=== PATIENT | female | born 1955 | race Caucasian/White ===

== ENCOUNTER 2017-04-28 20:20 | Emergency (ER) | payer BC ==
--- NOTE | 2017-04-28 20:30 | EDM.PDOC ---
ED HPI GENERAL MEDICAL PROBLEM - General Chief Complaint: Cardiovascular Problem Stated Complaint: "heart racing" Time Seen by Provider: 04/28/17 20:24 Source of Information: Reports: Patient History Limitations: Reports: No Limitations - History of Present Illness INITIAL COMMENTS - FREE TEXT/NARRATIVE: This patient is a 62 year old female that presents to the ER. Patient reports that about 7pm this evening she began to have heart racing sensation with shortness of breath. She reports it lasted about 30 minutes then it resolved on its own. Patient reports that she has not been taking any of her medications for 2 months. I asked her why she has not been taking her medications. Her response "because I did not get them filled." She reports since taking her medciations she did not have any episodes, but now she has not taken them. Patient denies ferrell, dizziness, n, v, d, f, cp, abd pain. She reports here in the ER her heart racing and shortness of breath have resolved. Onset: Today Onset Date: 04/28/17 Onset Time: 19:00 Duration: Minutes: (30) Severity: Moderate Improves with: Reports: None Worsens with: Reports: None Associated Symptoms: Reports: Shortness of Breath. Denies: Confusion, Chest Pain, Cough, cough w sputum, Diaphoresis, Fever/Chills, Headaches, Loss of Appetite, Malaise, Nausea/Vomiting, Rash, Seizure, Syncope, Weakness - Related Data Allergies Allergy/AdvReac Type Severity Reaction Status Date / Time Sulfa (Sulfonamide Allergy Cannot Verified 04/28/17 20:40 Antibiotics) Remember Home Meds: Home Meds Aspirin [Colt Chewable Aspirin] 81 mg PO BID 06/18/15 [History] Lisinopril/Hydrochlorothiazide [Lisinopril-Hctz 20-25 mg Tab] 1 tab PO DAILY [History] Metoprolol Succinate 50 mg PO DAILY 06/18/15 [History] Simvastatin 10 mg PO BEDTIME 06/18/15 [History] Potassium Chloride 10 meq PO DAILY #30 cap.er 06/20/15 [Rx] Rivaroxaban [Xarelto] 20 mg PO DAILY #30 tablet 06/20/15 [Rx] Topiramate [Topiramate] 100 mg PO BID 04/28/17 [History] Past Medical History Other Dermatologic History: excema - Past Surgical History Other GI Surgeries/Procedures: gastric bypass Social & Family History - Tobacco Use Smoking Status *Q: Former Smoker Years of Tobacco use: 5 Month Tobacco Last Used: 38 years ago Second Hand Smoke Exposure: No - Recreational Drug Use Recreational Drug Use: No ED ROS GENERAL - Review of Systems Review Of Systems: See Below Constitutional: Reports: No Symptoms HEENT: Reports: No Symptoms Respiratory: Reports: Shortness of Breath Cardiovascular: Reports: Palpitations Endocrine: Reports: No Symptoms GI/Abdominal: Reports: No Symptoms : Reports: No Symptoms Musculoskeletal: Reports: No Symptoms Skin: Reports: No Symptoms Neurological: Reports: No Symptoms Psychiatric: Reports: No Symptoms Hematologic/Lymphatic: Reports: No Symptoms Immunologic: Reports: No Symptoms ED EXAM, GENERAL - Physical Exam Exam: See Below Exam Limited By: No Limitations General Appearance: Alert, WD/WN, No Apparent Distress Eye Exam: Bilateral Eye: Normal Inspection, PERRL Ears: Normal External Exam, Normal Canal, Hearing Grossly Normal, Normal TMs Ear Exam: Bilateral Ear: Auricle Normal, Canal Normal, TM normal Nose: Normal Inspection, Normal Mucosa, No Blood Throat/Mouth: Normal Inspection, Normal Lips, Normal Teeth, Normal Gums, Normal Oropharynx, Normal Voice, No Airway Compromise Head: Atraumatic, Normocephalic Neck: Normal Inspection, Supple, Non-Tender, Full Range of Motion Respiratory/Chest: No Respiratory Distress, Lungs Clear, Normal Breath Sounds, No Accessory Muscle Use Cardiovascular: Normal Peripheral Pulses, Regular Rate, Rhythm (on exam. ), No Edema, No Gallop, No JVD, No Murmur, No Rub Peripheral Pulses: 2+: Radial (L), Radial (R), Posterior Tibial (L), Posterior Tibial (R) GI/Abdominal: Soft, Non-Tender Back Exam: Normal Inspection, Full Range of Motion Extremities: Normal Inspection, Normal Range of Motion, Non-Tender, No Pedal Edema, Normal Capillary Refill Neurological: Alert, Oriented, Normal Cognition, Normal Gait, No Motor/Sensory Deficits Psychiatric: Anxious, Tearful Skin Exam: Warm, Dry, Intact, Normal Color, No Rash Lymphatic: No Adenopathy EKG INTERPRETATION EKG Date: 04/28/17 Time: 20:19 Rhythm: NSR Rate (Beats/Min): 81 [place]: Normal P-Wave: Present QRS: Normal ST-T: Normal QT: Normal Course - Vital Signs Last Recorded V/S: Last Vital Signs Temp 96.4 F 04/28/17 22:34 Pulse 62 04/28/17 22:34 Resp 16 04/28/17 22:34 BP 148/90 H 04/28/17 22:34 Pulse Ox 96 04/28/17 22:34 - Orders/Labs/Meds Orders: Active Orders 24 hr Category Date Time Status EKG Documentation Completion [RC] STAT Care 04/28/17 20:24 Active Chest 2V [CR] Stat Exams 04/28/17 20:25 Taken Labs: Laboratory Tests 04/28/17 04/28/17 04/28/17 Range/Units 20:30 20:30 22:20 WBC 8.5 (5.0-10.0) 10^3/uL RBC 4.15 (4.00-5.50) 10^6/uL Hgb 11.0 L (12.0-16.0) g/dL Hct 35.0 L (37.0-47.0) % MCV 84.3 (82.0-94.0) fL MCH 26.5 L (27.0-32.0) pg MCHC 31.4 L (33.0-38.0) g/dL RDW Coeff of Yandel 15.0 (11.0-15.0) % Plt Count 239 (150-400) 10^3/uL Neut % (Auto) 76.2 (35-85) % Lymph % (Auto) 16.1 (10-55) % [place] % (Auto) 5.7 (0-16) % Eos % (Auto) 1.8 (0-5) % Baso % (Auto) 0.2 (0-3) % Neut # (Auto) 6.47 (1.80-7.00) 10^3/uL Lymph # (Auto) 1.37 (1.00-4.80) 10^3/uL [place] # (Auto) 0.48 (0.00-0.80) 10^3/uL Eos # (Auto) 0.15 (0.00-0.45) 10^3/uL Baso # (Auto) 0.02 10^3/uL Sodium 142 (136-145) mEq/L Potassium 3.8 (3.5-5.0) mEq/L Chloride 104 (98-106) mEq/L Carbon Dioxide 25 (21-32) mmol/L BUN 12 (7-18) mg/dL Creatinine 0.7 (0.6-1.0) mg/dL Est Cr Clr Drug Dosing 71.03 mL/min Estimated GFR (MDRD) > 60 (>=60) mL/min Glucose 136 H (75-99) mg/dL Calcium 9.3 (8.4-10.1) mg/dL Total Bilirubin 0.3 (0.0-1.0) mg/dL AST 45 H (15-37) U/L ALT 31 (12-78) U/L Alkaline Phosphatase 132 H (46-116) U/L Troponin I 0.023 0.054 (0.00-0.06) ng/mL Total Protein 7.8 (6.4-8.2) g/dL Albumin 3.9 (3.4-5.0) g/dL Meds: Medications Discontinued Medications Generic Name Dose Route Start Last Admin Trade Name Freq PRN Reason Stop Dose Admin Metoprolol Tartrate 50 mg 04/28/17 21:09 04/28/17 21:28 Lopressor PO 04/28/17 21:10 50 mg ONETIME ONE Administration - Radiology Interpretation Free Text/Narrative:: CXR: No infiltrates, no cardiac enlargement, no pulmonary edema. - Re-Assessments/Exams Free Text/Narrative Re-Assessment/Exam: 04/28/17 21:07 I called and spoke to Waistline Joiner Overlock Dr. Graff at [facility]. He reports that I can give her the Metoprlol in the ER PO tonight and have the patient fill her medications tomorrow and followup with PCP. Will repeat troponin, if still in negative range, will discharge. 04/28/17 22:52 Troponin still negative, will discharge per manager combination. 04/28/17 22:53 Patient has not had palpitations or a-fib while here in ER. Will discharge. Departure - Departure Time of Disposition: 22:53 Disposition: Home, Self-Care 01 Condition: Good Clinical Impression: Palpitations Atrial fibrillation Qualifiers: Atrial fibrillation type: unspecified Qualified Code(s): I48.91 - Unspecified atrial fibrillation Instructions: Atrial Fibrillation, [id number] Referrals: Troy Chamberlain MD [Primary Care Provider] - Forms: ED Department Discharge Additional Instructions: Followup with your primary care provider Return to the ER for worsening of condition or any emergent concerns GO TOMORROW MORNING TO PHARMACY AND REFILL ALL OF YOUR MEDICATIONS I have filled for you: Potassium Choloride Metroprolol Xarelto Lisinopril/HCTZ PLEASE ASK PHARMACIST TOMORROW TO ASK YOUR PRIMARY CARE PROVIDER FOR REFILL ON ALL YOUR OTHER MEDICATIONS. - My Orders Last 24 Hours: My Active Orders 04/28/17 20:24 EKG Documentation Completion [RC] STAT 04/28/17 20:25 Chest 2V [CR] Stat - Assessment/Plan Last 24 Hours: My Active Orders 04/28/17 20:24 EKG Documentation Completion [RC] STAT 04/28/17 20:25 Chest 2V [CR] Stat Plan: PLEASE SEE RN NOTE FOR PFSH.
[2017-04-28 20:49] LABS: CHLORIDE,CL 104 mEq/L (98-106); SODIUM,NA 142 mEq/L (136-145)
[2017-04-28] MEDS ORDERED: Metoprolol Tartrate 50 MG Tab PO ONE (21:09)
[2017-04-28 22:38] VITALS: BP 148/90
== END 2017-04-28 23:20 | disposition home or self-care (01) ==
LOC: CC.ED 20:20
DX: I48.91 Unspecified atrial fibrillation (principal); Z88.2 Allergy status to sulfonamides; Z79.82 Long term (current) use of aspirin; Z79.899 Other long term (current) drug therapy; Z98.84 Bariatric surgery status; Z87.891 Personal history of nicotine dependence
CPT/HCPCS: 36415; 71020; 80053; 84484; 85025; 93005; 99285; A9270

== ENCOUNTER 2019-06-19 14:19 | Emergency (ER) | payer OTHER, MEDICARE ==
[2019-06-19 14:54] VITALS: BP 119/62; PULSE 81
--- NOTE | 2019-06-19 14:56 | EDM.PDOC ---
ED HPI GENERAL MEDICAL PROBLEM - General Stated Complaint: FALL Time Seen by Provider: 06/19/19 14:35 Source of Information: Reports: Patient History Limitations: Reports: No Limitations - History of Present Illness INITIAL COMMENTS - FREE TEXT/NARRATIVE: This patient is a 64 year old female that reports she was working at [employer] when she slipped on the floor and fell on her right side. Patient reports pain to the right elbow. She reports very mild right hip/thigh pain. Patient denies blood thinners, head injury, neck pain, neck stiffness, headache, vision changes , n, v, or any other pain complaints. Onset: Today Onset Date: 06/19/19 Onset Time: 13:30 Location: Reports: Upper Extremity, Right, Lower Extremity, Right Front/Back Body Image: 1 - pain, tenderness. 2 - pain, mildly tender. Quality: Reports: Ache Severity: Mild Improves with: Reports: Immobilization Worsens with: Reports: Movement Associated Symptoms: Reports: No Other Symptoms. Denies: Confusion, Chest Pain , Cough, cough w sputum, Diaphoresis, Fever/Chills, Headaches, Loss of Appetite , Malaise, Nausea/Vomiting, Rash, Seizure, Shortness of Breath, Syncope, Weakness Right Elbow Pain Score (Numeric/FACES): 7 - Related Data Allergies Allergy/AdvReac Type Severity Reaction Status Date / Time Sulfa (Sulfonamide Allergy Cannot Verified 06/19/19 14:42 Antibiotics) Remember Home Meds: Home Meds Aspirin [Colt Chewable Aspirin] 81 mg PO BID 06/18/15 [History] Metoprolol Succinate 50 mg PO DAILY 06/18/15 [History] Simvastatin 10 mg PO BEDTIME 06/18/15 [History] Potassium Chloride 10 meq PO DAILY #30 cap.er 06/20/15 [Rx] Past Medical History Cardiovascular History: Reports: High Cholesterol, Hypertension Other Dermatologic History: excema - Past Surgical History Other GI Surgeries/Procedures: gastric bypass Social & Family History - Family History Family Medical History: Noncontributory - Caffeine Use Caffeine Use: Reports: None Review of Systems - Review of Systems Review Of Systems: See Below Constitutional: Reports: No Symptoms Eyes: Reports: No Symptoms Ears: Reports: No Symptoms Nose: Reports: No Symptoms Mouth/Throat: Reports: No Symptoms Respiratory: Reports: No Symptoms Cardiovascular: Reports: No Symptoms GI/Abdominal: Reports: No Symptoms Genitourinary: Reports: No Symptoms Musculoskeletal: Reports: Leg Pain (right upper thigh lateral pain. ), Joint Pain (Right elbow pain). Denies: Neck Pain, Shoulder Pain, Back Pain, Hand Pain , Joint Swelling Skin: Reports: No Symptoms Neurological: Reports: No Symptoms Psychiatric: Reports: No Symptoms ED EXAM, GENERAL - Physical Exam Exam: See Below Exam Limited By: No Limitations General Appearance: Alert, WD/WN, No Apparent Distress Eye Exam: Bilateral Eye: EOMI, Normal Inspection, PERRL Ears: Normal External Exam, Normal Canal, Hearing Grossly Normal, Normal TMs Ear Exam: Bilateral Ear: Auricle Normal, Canal Normal, TM normal Nose: Normal Inspection, Normal Mucosa, No Blood Throat/Mouth: Normal Inspection, Normal Lips, Normal Teeth, Normal Gums, Normal Oropharynx, Normal Voice, No Airway Compromise Head: Atraumatic, Normocephalic Neck: Normal Inspection, Supple, Non-Tender, Full Range of Motion Respiratory/Chest: No Respiratory Distress, Lungs Clear Cardiovascular: Normal Peripheral Pulses, Regular Rate, Rhythm, No Edema, No Gallop, No JVD, No Murmur, No Rub Peripheral Pulses: 2+: Radial (L), Radial (R), Posterior Tibial (L), Posterior Tibial (R) GI/Abdominal: Soft, Non-Tender, No Organomegaly, No Distention, No Mass, Pelvis Stable Back Exam: Normal Inspection, Full Range of Motion. No: CVA Tenderness (L), CVA Tenderness (R), Decreased Range of Motion, Muscle Spasm, Paraspinal Tenderness, Vertebral Tenderness Extremities: Normal Inspection, Normal Range of Motion, No Pedal Edema, Normal Capillary Refill, Leg Pain (Righ lateral thigh/posterior buttock. No miguel ángel tenderness. ROM of hip/pelvis full intact. No shortening. Normal ambualation without difficulty, sensory/motor function intact. Neurovascular intact. Pulses +2.), Other (Pain, tenderness to the Right elbow. No swelling, ecchymosis. Pain with supination and pronation, but ROM fully intact. Neurovascular intact, pulses +2, cap refill < 2 sec. Sensory/motor function intact. ). No: Limited Range of Motion Neurological: Alert, Oriented, Normal Cognition, Normal Gait, No Motor/Sensory Deficits Psychiatric: Normal Affect, Normal Mood Skin Exam: Warm, Dry, Intact, Normal Color, No Rash Lymphatic: No Adenopathy Course - Vital Signs Last Recorded V/S: Last Vital Signs Temp 98.5 F 06/19/19 14:52 Pulse 81 06/19/19 14:52 Resp 20 06/19/19 14:52 BP 119/62 06/19/19 14:52 Pulse Ox 98 06/19/19 14:52 - Radiology Interpretation Free Text/Narrative:: Right elbow Xray: No fx. No dislocation. No effusion Departure - Departure Time of Disposition: 15:15 Disposition: Home, Self-Care 01 Condition: Good Clinical Impression: Fall Qualifiers: Encounter type: initial encounter Qualified Code(s): W19.XXXA - Unspecified fall, initial encounter Contusion of right elbow Qualifiers: Encounter type: initial encounter Qualified Code(s): S50.01XA - Contusion of right elbow, initial encounter Contusion, buttock Qualifiers: Encounter type: initial encounter Qualified Code(s): S30.0XXA - Contusion of lower back and pelvis, initial encounter - Discharge Information *PRESCRIPTION DRUG MONITORING PROGRAM REVIEWED*: Not Applicable *COPY OF PRESCRIPTION DRUG MONITORING REPORT IN PATIENT PAPO: Not Applicable Instructions: Contusion, Elbow Contusion, [id number] Referrals: Stephanie Gutierrez PA-C [Primary Care Provider] - Forms: ED Department Discharge Additional Instructions: Followup with your primary care provider if pain continues after 2 weeks Return to the ER for worsening of condition or any emergent concerns Rest Ice Elevate Sling as needed No use of right arm/elbow for 3 days Tylenol or Motrin for pain as needed - Assessment/Plan Plan: PLEASE SEE RN NOTE FOR PFSH.
== END 2019-06-19 15:30 | disposition home or self-care (01) ==
LOC: CC.ED 14:19
DX: S50.01XA Contusion of right elbow, initial encounter (principal); S30.0XXA Contusion of lower back and pelvis, initial encounter; E78.00 Pure hypercholesterolemia, unspecified; I10 Essential (primary) hypertension; Z88.2 Allergy status to sulfonamides; Z79.82 Long term (current) use of aspirin; Z79.899 Other long term (current) drug therapy; W01.0XXA Fall on same level from slipping, tripping and stumbling without subsequent striking against object, initial encounter
CPT/HCPCS: 73080-RT; 99284-25

== ENCOUNTER 2020-02-17 13:41 | Emergency (ER) | payer MEDICARE ==
[2020-02-17 14:10] VITALS: BP 142/85; PULSE 95
[2020-02-17 14:16] LABS: CHLORIDE,CL 101 mEq/L (98-106); SODIUM,NA 138 mEq/L (136-145)
--- NOTE | 2020-02-17 14:19 | EDM.PDOC ---
ED HPI GENERAL MEDICAL PROBLEM - General Chief Complaint: General Stated Complaint: A-FIB ATTACK Time Seen by Provider: 02/17/20 14:10 Source of Information: Reports: Patient History Limitations: Reports: No Limitations - History of Present Illness INITIAL COMMENTS - FREE TEXT/NARRATIVE: States that she was shopping today and she could feel her heart rate become irregular and race. She has history of a fib about 3 years ago and she states that it feels like that now. She did have some chest heaviness and short of breathe when it was occurring. She has noted these on and off for the last several days. On arrival in the ER she has NSR and she no longer feels that it is irregular. She doesn't feel SOB with it currently. Has not noted any edema. Has never seen pants cutter. Onset: Gradual Duration: Resolved Prior to Arrival Location: Reports: Chest Associated Symptoms: Reports: Chest Pain, Shortness of Breath - Related Data Allergies Allergy/AdvReac Type Severity Reaction Status Date / Time Sulfa (Sulfonamide Allergy Cannot Verified 02/17/20 13:58 Antibiotics) Remember Home Meds: Home Meds Aspirin [Colt Chewable Aspirin] 81 mg PO BID 06/18/15 [History] Metoprolol Succinate 50 mg PO DAILY 06/18/15 [History] Simvastatin 10 mg PO BEDTIME 06/18/15 [History] Potassium Chloride 10 meq PO DAILY #30 cap.er 06/20/15 [Rx] Lisinopril/Hydrochlorothiazide [Lisinopril-HCTZ 10-12.5 MG] 1 tab PO DAILY 02/16 [History] Past Medical History HEENT History: Reports: None Cardiovascular History: Reports: Afib, High Cholesterol, Hypertension Respiratory History: Reports: None Gastrointestinal History: Reports: None Genitourinary History: Reports: None Neurological History: Reports: None Endocrine/Metabolic History: Reports: None Other Dermatologic History: excema - Past Surgical History Other GI Surgeries/Procedures: gastric bypass Other Musculoskeletal Surgeries/Procedures:: Patient fell and has 1cm contusion to right elbow and patient c/o right hip pain. Social & Family History - Family History Family Medical History: Noncontributory - Tobacco Use Smoking Status *Q: Never Smoker - Caffeine Use Caffeine Use: Reports: None - Living Situation & Occupation Living situation: Reports: , with Spouse Occupation: Employed ED ROS GENERAL - Review of Systems Review Of Systems: See Below Constitutional: Denies: Fever, Chills HEENT: Reports: No Symptoms Respiratory: Reports: Shortness of Breath Cardiovascular: Reports: Chest Pain Endocrine: Reports: No Symptoms GI/Abdominal: Reports: No Symptoms : Reports: No Symptoms Musculoskeletal: Reports: No Symptoms Skin: Reports: No Symptoms Neurological: Reports: No Symptoms ED EXAM, GENERAL - Physical Exam Exam: See Below Exam Limited By: No Limitations General Appearance: Alert, WD/WN, No Apparent Distress Ears: Normal External Exam, Normal Canal, Normal TMs Throat/Mouth: Normal Inspection, Normal Oropharynx Head: Atraumatic, Normocephalic Neck: Normal Inspection, Supple, Non-Tender, Full Range of Motion Respiratory/Chest: No Respiratory Distress, Lungs Clear, Normal Breath Sounds Cardiovascular: Normal Peripheral Pulses, Regular Rate, Rhythm, No Edema GI/Abdominal: Normal Bowel Sounds, Soft, Non-Tender Neurological: Alert, Oriented Skin Exam: Warm, Dry, Intact Course - Vital Signs Last Recorded V/S: Last Vital Signs Temp 97.9 F 02/17/20 14:01 Pulse 95 02/17/20 14:09 Resp 18 02/17/20 14:09 BP 142/85 H 02/17/20 14:09 Pulse Ox 95 02/17/20 14:09 - Orders/Labs/Meds Orders: Active Orders 24 hr Category Date Time Status COMPREHENSIVE METABOLIC PN,CMP [CHEM] Stat Lab 02/17/20 13:55 Received CREATINE KINASE,CK [CHEM] Stat Lab 02/17/20 13:55 Received INR,PT,PROTHROMBIN TIME [COAG] Stat Lab 02/17/20 13:55 Received LACTATE DEHYDROGENASE,LDH [CHEM] Stat Lab 02/17/20 13:55 Received LIPASE [CHEM] Stat Lab 02/17/20 13:55 Received PTT,PARTIAL THROMBOPLSTIN TIME [COAG] Stat Lab 02/17/20 13:55 Received TROPONIN I [CHEM] Stat Lab 02/17/20 13:55 Received Labs: Laboratory Tests 02/17/20 Range/Units 13:55 WBC 6.5 (5.0-10.0) 10^3/uL RBC 4.53 (4.00-5.50) 10^6/uL Hgb 13.2 (12.0-16.0) g/dL Hct 39.8 (37.0-47.0) % MCV 87.9 (82.0-94.0) fL MCH 29.1 (27.0-32.0) pg MCHC 33.2 (33.0-38.0) g/dL RDW Coeff of Yandel 16.0 H (11.0-15.0) % Plt Count 209 (150-400) 10^3/uL Neut % (Auto) 62.6 (35-85) % Lymph % (Auto) 27.4 (10-55) % [place] % (Auto) 7.4 (0-16) % Eos % (Auto) 2.1 (0-5) % Baso % (Auto) 0.5 (0-3) % Neut # (Auto) 4.09 (1.80-7.00) 10^3/uL Lymph # (Auto) 1.79 (1.00-4.80) 10^3/uL [place] # (Auto) 0.48 (0.00-0.80) 10^3/uL Eos # (Auto) 0.14 (0.00-0.45) 10^3/uL Baso # (Auto) 0.03 10^3/uL - Re-Assessments/Exams Free Text/Narrative Re-Assessment/Exam: 02/17/20 14:30 Discussed normal lab results with the pt. Will increase the metoprolol to try and prevent her from tachycardia and set up appt with Dr. Odom pants cutter when he comes to [place]. Departure - Departure Time of Disposition: 14:31 Disposition: Home, Self-Care 01 Condition: Good Clinical Impression: Atrial fibrillation, currently in sinus rhythm Atrial fibrillation Qualifiers: Atrial fibrillation type: unspecified Qualified Code(s): I48.91 - Unspecified atrial fibrillation - Discharge Information *PRESCRIPTION DRUG MONITORING PROGRAM REVIEWED*: Not Applicable *COPY OF PRESCRIPTION DRUG MONITORING REPORT IN PATIENT PAPO: Not Applicable Instructions: Atrial Fibrillation, [id number] Additional Instructions: Increase Metoprolol to 100 mg daily. Take 2 of the 50's that you currently have at home until gone. make appt with primary provider of choice in 2 weeks to monitor BP and irregular heart rate. If you go back into a fib and it is sustained you need to come into the clinic or ER. Make sure you stay hydrated. Do not over due activity to stress yourself. Appt with Dr. Odom Jun 02 at noon in [place]. If you need to change appt call [phone] Sepsis Event Note - Evaluation Sepsis Screening Result: No Definite Risk - Focused Exam Vital Signs: Vital Signs Temp Pulse Resp BP Pulse Ox 02/17/20 14:09 95 18 142/85 H 95 02/17/20 14:01 97.9 F 92 22 H 151/92 H 98 Date Exam was Performed: 02/17/20 Time Exam was Performed: 14:13 - My Orders Last 24 Hours: My Active Orders 02/17/20 13:55 COMPREHENSIVE METABOLIC PN,CMP [CHEM] Stat CREATINE KINASE,CK [CHEM] Stat INR,PT,PROTHROMBIN TIME [COAG] Stat LACTATE DEHYDROGENASE,LDH [CHEM] Stat LIPASE [CHEM] Stat PTT,PARTIAL THROMBOPLSTIN TIME [COAG] Stat TROPONIN I [CHEM] Stat - Assessment/Plan Last 24 Hours: My Active Orders 02/17/20 13:55 COMPREHENSIVE METABOLIC PN,CMP [CHEM] Stat CREATINE KINASE,CK [CHEM] Stat INR,PT,PROTHROMBIN TIME [COAG] Stat LACTATE DEHYDROGENASE,LDH [CHEM] Stat LIPASE [CHEM] Stat PTT,PARTIAL THROMBOPLSTIN TIME [COAG] Stat TROPONIN I [CHEM] Stat
== END 2020-02-17 14:50 | disposition home or self-care (01) ==
LOC: CC.ED 13:41
DX: I48.91 Unspecified atrial fibrillation (principal); E78.00 Pure hypercholesterolemia, unspecified; I10 Essential (primary) hypertension; Z79.899 Other long term (current) drug therapy; Z88.2 Allergy status to sulfonamides
CPT/HCPCS: 36415; 71046; 80053; 82550; 83615; 83690; 84484; 85025; 85610; 85730; 93005; 99284; 99285-25

== ENCOUNTER → 2020-12-30 | Day surgery (SDC) | payer BC, MEDICARE ==
[2020-12-30] MEDS: Lactated Ringers 1,000 ML IV SCH (06:50)
[2020-12-30 08:03] VITALS: PULSE 58
[2020-12-30 08:27] VITALS: BP 156/78
--- NOTE | 2020-12-30 13:58 | OR ---
DATE OF OPERATION: 12/30/2020 PREOPERATIVE DIAGNOSIS: DYSPHAGIA. POSTOPERATIVE DIAGNOSIS: PEPTIC ULCER DISEASE. SURGEON: Sincere Juan MD PROCEDURE: DIAGNOSTIC ESOPHAGOGASTRODUODENOSCOPY WITH BIOPSIES X2, CALLUM. ANESTHESIA: MAC. COMPLICATIONS: None. SPECIMEN: 1. Anastomosis, biopsy x2. 2. CALLUM. FINDINGS: 1. Full-length EGD. 2. Status post Marybeth-en-Y gastric bypass. 3. Large anastomotic ulcer. RECOMMENDATIONS: The patient needs to stop her Mobic and aspirin for now. She needs to start on a 6-week course of Protonix and treatment for H. pylori pending results and recommend a followup EGD at that time. INDICATIONS: The patient has been having complaints of dysphagia at the distal esophagus. Stephanie sent her for diagnostic scope. DESCRIPTION OF PROCEDURE: The patient was prepped and draped, placed in the left lateral decubitus position. A lubricated Olympus gastroscope was inserted, advanced to the cricopharyngeus area, and with ease advanced into the esophagus. The esophageal lining was benign in its entire course. The Z-line was crisp at 39 cm. There was no significant spontaneous reflux, esophagitis, stricturing, ulceration, or Burdick's changes. The scope was advanced into the stomach which was markedly shortened with a Marybeth-en-Y gastric bypass. There were no signs of peptic ulcer disease in the stomach. The anastomosis does not appear strictured, but on the jejunal side, the patient had a large exudative ulcer which was biopsied x2. The scope was brought back into the remaining stomach and a CLOtest was obtained. The opening of the Marybeth-en-Y is approximately 18 to 20 mm and I do not feel stretching is due. Air was then suctioned from the stomach and the scope was removed without complication. REANNA/LAURA /[id number]
== END ==
LOC: CC.SDS 06:43
PROVIDERS: ATTEND Family Medicine
DX: K52.9 Noninfective gastroenteritis and colitis, unspecified (principal); K27.9 Peptic ulcer, site unspecified, unspecified as acute or chronic, without hemorrhage or perforation; K28.9 Gastrojejunal ulcer, unspecified as acute or chronic, without hemorrhage or perforation; I10 Essential (primary) hypertension; E78.00 Pure hypercholesterolemia, unspecified; M85.80 Other specified disorders of bone density and structure, unspecified site; H60.12 Cellulitis of left external ear; E11.9 Type 2 diabetes mellitus without complications; I48.91 Unspecified atrial fibrillation; E66.01 Morbid (severe) obesity due to excess calories; G89.29 Other chronic pain; Z88.2 Allergy status to sulfonamides; Z98.84 Bariatric surgery status; Z87.891 Personal history of nicotine dependence; Z79.899 Other long term (current) drug therapy; Z79.82 Long term (current) use of aspirin; Z98.890 Other specified postprocedural states; Z68.42 Body mass index [BMI] 45.0-49.9, adult
CPT/HCPCS: 00731; 77063; 77067; 87081; 88305; J7120

== ENCOUNTER → 2021-02-10 | Day surgery (SDC) | payer BC, MEDICARE ==
[~2021-02-10] MED LIST: Lactated Ringers 1,000 ML IV SCH; Propofol 200 MG/20 ML SDV ONE; fentaNYL 100 MCG/2 ML SDV ONE
[2021-02-10 08:38] VITALS: BP 129/67; PULSE 64
--- NOTE | 2021-02-10 11:47 | OR ---
DATE OF OPERATION: 02/10/2021 PREOPERATIVE DIAGNOSIS: GASTRIC ANASTOMOTIC ULCER. POSTOPERATIVE DIAGNOSIS: GASTRIC ANASTOMOTIC ULCER. SURGEON: Sincere Juan MD PROCEDURE: DIAGNOSTIC ESOPHAGOGASTRODUODENOSCOPY WITH BIOPSIES X3. ANESTHESIA: MAC. COMPLICATIONS: None. SPECIMEN: 1. Biopsy of x2 anastomotic ulcer. 2. Biopsy of distal esophagus. FINDINGS: 1. Full-length diagnostic EGD. 2. 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 3. 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 RECOMMENDATIONS: Continue with proton pump therapy and avoid all NSAIDs and aspirin. We will recommend a followup EGD in 2 years pending distal esophageal biopsy results. INDICATIONS: Mrs. Sen was seen 6 weeks ago and had a large ulcer at her anastomosis, recommended a followup to ensure healing. DESCRIPTION OF PROCEDURE: The patient was prepped and draped, placed in the left lateral decubitus position. A lubricated Olympus gastroscope was inserted over a bit, advanced to cricopharyngeus area, and easily intubated in the esophagus. The esophageal lining appeared benign in its entire course. The patient had no significant spontaneous reflux seen. No significant esophagitis, stricturing, or ulceration. She did have maybe 1 small short-segment Burdick's and so we did do a biopsy of it which was not appreciated on her last scope. The scope was advanced back into the stomach through Marybeth-en-Y and no gross abnormalities were seen on the downside of the anastomosis. The large ulcer at the anastomosis is healing nicely. I did repeat a biopsy of the more distal area. No other lesions were found in the stomach. The scope was removed and the patient was stable in the recovery room. REANNA/LAURA /[id number]
== END ==
LOC: CC.SDS 06:31
PROVIDERS: ATTEND Family Medicine
DX: K29.50 Unspecified chronic gastritis without bleeding (principal); K22.8 Other specified diseases of esophagus; K28.9 Gastrojejunal ulcer, unspecified as acute or chronic, without hemorrhage or perforation; I48.91 Unspecified atrial fibrillation; G89.29 Other chronic pain; M54.5 Low back pain; M25.562 Pain in left knee; I10 Essential (primary) hypertension; E78.00 Pure hypercholesterolemia, unspecified; M85.80 Other specified disorders of bone density and structure, unspecified site; E11.9 Type 2 diabetes mellitus without complications; H60.12 Cellulitis of left external ear; E66.9 Obesity, unspecified; Z79.84 Long term (current) use of oral hypoglycemic drugs; Z98.84 Bariatric surgery status; Z87.891 Personal history of nicotine dependence; Z88.2 Allergy status to sulfonamides; Z79.899 Other long term (current) drug therapy; Z79.82 Long term (current) use of aspirin; Z98.890 Other specified postprocedural states; Z68.42 Body mass index [BMI] 45.0-49.9, adult; K25.9 Gastric ulcer, unspecified as acute or chronic, without hemorrhage or perforation
CPT/HCPCS: 00731; 88305; 88342; J2704; J3010; J7120

== ENCOUNTER 2024-09-04 07:08 | Day surgery (SDC) | payer MEDICARE, BC ==
[2024-09-04] MEDS: Lactated Ringers 1,000 ML IV SCH (07:27)
[2024-09-04] MEDS ORDERED: Propofol 200 MG/20 ML SDV ONE (07:35)
[2024-09-04] MEDS ORDERED: Ketamine 200 MG/20 ML MDV ONE (07:35)
[2024-09-04] MEDS ORDERED: fentaNYL 50 MCG/ML SDV ONE (07:35)
[2024-09-04 11:22] VITALS: BP 136/72; PULSE 63
== END 2024-09-04 11:23 | disposition home or self-care (01) ==
LOC: CC.SDS 07:08
PROVIDERS: ATTEND Family Medicine
DX: Z12.11 Encounter for screening for malignant neoplasm of colon (principal); I10 Essential (primary) hypertension; E11.9 Type 2 diabetes mellitus without complications; E78.00 Pure hypercholesterolemia, unspecified; I48.91 Unspecified atrial fibrillation; Z87.891 Personal history of nicotine dependence; Z79.84 Long term (current) use of oral hypoglycemic drugs; Z79.899 Other long term (current) drug therapy; Z88.2 Allergy status to sulfonamides
CPT/HCPCS: J2704; J3010; J3490; J7120